=== PATIENT | female | born 1955 | race Caucasian/White ===

== ENCOUNTER 2020-10-13 | Outpatient (REF) | payer MEDICARE, SELFPAY ==
[2020-10-15 14:28] LABS: FIT1 NEGATIVE (NEGATIVE); FIT2 NEGATIVE (NEGATIVE)
[2020-10-15 14:29] LABS: FIT Int Ctl YES
== END 2020-10-13 00:01 | disposition home or self-care (01) ==
LOC: HO.LNP
PROVIDERS: Visit Provider Internal Medicine
DX: Z00.00 Encounter for general adult medical examination without abnormal findings (principal)
CPT/HCPCS: 82274

== ENCOUNTER 2021-01-05 08:03 | Outpatient (REF) | payer MEDICARE, SELFPAY ==
[2021-01-05 11:49] LABS: Alanine Aminotransferase 28 U/L (0-31); Albumin Level 4.6 g/dL (3.5-5.0); Alkaline Phosphatase 86 U/L (39-117); Anion Gap 14 (12-20); Aspartate Amino Transferase 28 U/L (5-31); Bilirubin Total 0.4 mg/dL (0.0-1.0); Blood Urea Nitrogen 10 mg/dL (9-16); Calcium 9.9 mg/dL (8.4-10.2); Carbon Dioxide 28 mmol/L (22-29); Chloride 104 mmol/L (96-108); Cholesterol 155 mg/dL; Estimated Glomerular Filt Rate > 60; Glucose Fasting 103 mg/dL (60-99); HDL Cholesterol 39 mg/dL; LDL Cholesterol Calculated 55 mg/dl; Potassium 4.8 mmol/L (3.3-5.1); Sodium 141 mmol/L (135-145); Total Protein 7.6 g/dL (6.5-8.0); Triglycerides 305 mg/dL
[2021-01-05 11:59] LABS: Vitamin D 25-OH Total 30.4 ng/mL (>30)
== END 2021-01-05 08:04 | disposition home or self-care (01) ==
LOC: HO.HMGCLDS 08:03
PROVIDERS: PCP Internal Medicine; Visit Provider Internal Medicine
DX: I10 Essential (primary) hypertension (principal); R73.01 Impaired fasting glucose; E78.1 Pure hyperglyceridemia; M85.89 Other specified disorders of bone density and structure, multiple sites
CPT/HCPCS: 36415; 80053; 80061; 82306

== ENCOUNTER 2021-07-08 08:18 | Outpatient (REF) | payer MEDICARE, SELFPAY ==
[2021-07-08 11:39] LABS: Alanine Aminotransferase 35 U/L (0-31); Anion Gap 14 (12-20); Aspartate Amino Transferase 30 U/L (5-31); Blood Urea Nitrogen 9 mg/dL (9-16); Calcium 9.9 mg/dL (8.4-10.2); Carbon Dioxide 26 mmol/L (22-29); Chloride 105 mmol/L (96-108); Cholesterol 152 mg/dL; Estimated Glomerular Filt Rate > 60; Glucose Fasting 106 mg/dL (60-99); HDL Cholesterol 37 mg/dL; LDL Cholesterol Calculated 63 mg/dl; Potassium 4.7 mmol/L (3.3-5.1); Sodium 140 mmol/L (135-145); Triglycerides 264 mg/dL
[2021-07-08 12:01] LABS: Vitamin D 25-OH Total 27.1 ng/mL (>30)
== END 2021-07-08 08:19 | disposition home or self-care (01) ==
LOC: HO.HMGCLDS 08:18
PROVIDERS: PCP Internal Medicine; Visit Provider Internal Medicine
DX: E78.2 Mixed hyperlipidemia (principal); I10 Essential (primary) hypertension; Z78.0 Asymptomatic menopausal state
CPT/HCPCS: 36415; 80048; 80061; 82306; 84450; 84460

== ENCOUNTER 2022-02-04 08:05 | Outpatient (REF) | payer MEDICARE, SELFPAY ==
[2022-02-04 12:22] LABS: Alanine Aminotransferase 50 U/L (0-31); Anion Gap 13 (12-20); Aspartate Amino Transferase 35 U/L (5-31); Blood Urea Nitrogen 11 mg/dL (9-16); Calcium 9.8 mg/dL (8.4-10.2); Carbon Dioxide 27 mmol/L (22-29); Chloride 103 mmol/L (96-108); Cholesterol 173 mg/dL; Estimated Glomerular Filt Rate > 60; Glucose Fasting 111 mg/dL (60-99); HDL Cholesterol 36 mg/dL; LDL Cholesterol Calculated 60 mg/dl; Potassium 4.8 mmol/L (3.3-5.1); Sodium 138 mmol/L (135-145); Triglycerides 386 mg/dL
[2022-02-04 12:46] LABS: Vitamin D 25-OH Total 35.5 ng/mL (>30)
== END 2022-02-04 08:06 | disposition home or self-care (01) ==
LOC: HO.HMGCLDS 08:05
PROVIDERS: PCP Internal Medicine; Visit Provider Internal Medicine
DX: E78.2 Mixed hyperlipidemia (principal); I10 Essential (primary) hypertension; M85.89 Other specified disorders of bone density and structure, multiple sites; R73.01 Impaired fasting glucose; Z78.0 Asymptomatic menopausal state
CPT/HCPCS: 36415; 80048; 80061; 82306; 84450; 84460

== ENCOUNTER 2022-05-31 08:14 | Outpatient (REF) | payer MEDICARE, SELFPAY ==
[2022-05-31 11:43] LABS: Estimated Average Glucose 114 mg/dL; Hemoglobin A1c % 5.6 %
[2022-05-31 12:02] LABS: TSH reflex Free T4 2.84 uIU/mL (0.32-4.0)
[2022-05-31 12:08] LABS: Alanine Aminotransferase 40 U/L (0-31); Aspartate Amino Transferase 34 U/L (5-31); Cholesterol 175 mg/dL; HDL Cholesterol 39 mg/dL; LDL Cholesterol Calculated 97 mg/dl; Triglycerides 198 mg/dL
== END 2022-05-31 08:15 | disposition home or self-care (01) ==
LOC: HO.HMGCLDS 08:14
PROVIDERS: PCP Internal Medicine; Visit Provider Internal Medicine
DX: E78.2 Mixed hyperlipidemia (principal); I10 Essential (primary) hypertension; M85.89 Other specified disorders of bone density and structure, multiple sites; R73.01 Impaired fasting glucose; Z78.0 Asymptomatic menopausal state
CPT/HCPCS: 36415; 80061; 82550; 83036; 84443; 84450; 84460

== ENCOUNTER 2022-10-06 08:20 | Outpatient (REF) | payer MEDICARE, SELFPAY ==
[2022-10-06 12:10] LABS: Alanine Aminotransferase 37 U/L (0-31); Anion Gap 12 (12-20); Aspartate Amino Transferase 31 U/L (5-31); Blood Urea Nitrogen 10 mg/dL (9-16); Calcium 9.7 mg/dL (8.4-10.2); Carbon Dioxide 27 mmol/L (22-29); Chloride 105 mmol/L (96-108); Cholesterol 167 mg/dL; Estimated Glomerular Filt Rate > 60; Glucose Fasting 101 mg/dL (60-99); HDL Cholesterol 39 mg/dL; LDL Cholesterol Calculated 87 mg/dl; Potassium 4.3 mmol/L (3.3-5.1); Sodium 140 mmol/L (135-145); Triglycerides 205 mg/dL
[2022-10-06 12:46] LABS: Estimated Average Glucose 117 mg/dL; Hemoglobin A1c % 5.7 %
== END 2022-10-06 08:21 | disposition home or self-care (01) ==
LOC: HO.HMGCLDS 08:20
PROVIDERS: PCP Internal Medicine; Visit Provider Internal Medicine
DX: E78.2 Mixed hyperlipidemia (principal); I10 Essential (primary) hypertension; R73.01 Impaired fasting glucose; E66.3 Overweight
CPT/HCPCS: 36415; 80048; 80061; 83036; 84450; 84460

== ENCOUNTER 2022-12-26 12:56 | Outpatient (AMB) | payer MEDICARE, SELFPAY ==
--- NOTE | 2022-12-26 13:32 | A.OFFPC_ITS ---
Vital Signs 12/26/22 13:34 Height 5 ft 1 in Weight 153 lb BMI 28.9 BP 138/70 Blood Pressure Location Lt brachial Position Sitting Pulse 80 Pulse Source Pulse Oximeter Pulse Oximetry (%) 97 Oxygen Delivery Method Room Air Intake Visit Reasons: 6 month follow up Intake Note: Pt is here for her 6 month f/u appointment. Allergies No Known Allergies Allergy (Verified 07/10/23 02:23) Medication List - Last Reconciled 12/26/22 by Shanita Frankel MD aspirin (Adult Low Dose Aspirin) 81 mg PO DAILY atorvastatin 20 mg PO 2XW calcium carbonate 500 mg PO DAILY cholecalciferol (vitamin D3) 50 mcg PO DAILY fenofibric acid (choline) 135 mg PO BEDTIME NS lisinopril 10 mg PO DAILY multivitamin 1 tab PO DAILY Tobacco use date assessed: 12/26/22 Fall risk assessment: No Falls in past year Last assessed Fall Risk: 12/26/22 HPI 6 month follow up HPI Details 68-year-old lady with hypertension, dysl ipidemia, generalized anxiety disorder, and prediabetes, here today for follow-up. Has been following healthy diet, stays active, compliant with taking her medications. Has been feeling well with no complaints at present time. Fasting labs done approximately 2 months ago showed results within normal limits except for a fasting glucose at 101 mg/dL and elevated triglycerides. HPI Comments History of Present Illness Details 67-year-old lady with impaired fasting g lucose, osteopenia and multiple sites, mixed dyslipidemia, and hypertension, here today for follow-up. [facility] Medical History (Updated 07/07/23 @ 13:50 by Shanita Frankel MD) Generalized anxiety disorder Unable to lose weight Overweight (BMI 25.0-29.9) Impaired fasting glucose Osteopenia of multiple sites Menopause Essential hypertension Mixed dyslipidemia Surgical History History of section Family History Father CVD (cardiovascular disease) Diabetes mellitus Hypertriglyceridemia Mother CVD (cardiovascular disease) Diabetes mellitus Breast cancer, Onset Age: 43 Colon cancer Sister Dermatomyositis Breast cancer Hypertension Ovarian cancer Social History Housing: Condominium Alcohol intake: current Patient Tobacco Use Status: Former Tobacco user e-Cigarette/Vaping Use: Never Used Current occupational status: retired Cognitive needs: No Hearing needs: No Vision needs: No Questionnaire AUDIT C Alcohol Use Questionnaire (AUDIT-C) 1. How often do you have a drink containing alcohol?: Monthly or less 2. How many drinks containing alcohol do you have on a typical day when you are drinking?: 1 or 2 3. How often do you have six or more drinks on one occasion?: Never Total Score: 1 Review of Systems Const Denies fatigue, Denies fever(s), Denies headache(s) and Denies weakness ENT Denies dizziness, Denies headache(s), Denies nasal congestion and Denies nasal discharge Card Denies chest pain, Denies lightheadedness, Denies palpitations and Denies dyspnea Resp Denies chest congestion, Denies cough and Denies dyspnea GI Denies abdominal pain, Denies change in bowel habits and Denies heartburn Musc Reports no additional complaints Skin/Breast Denies lesions and Denies rash Neuro Denies dizziness, Denies headache(s) and Denies weakness Psych Denies anxiety and Denies depression Endo Denies fatigue, Denies polydipsia, Denies polyuria and Denies palpitations Physical exam (Primary Care) Vital Signs: Last Vital Signs Pulse 80 12/26/22 13:34 BP 138/70 12/26/22 13:34 Pulse Ox 97 12/26/22 13:34 Oxygen Delivery Method Room Air 12/26/22 13:34 BMI result Body Mass Index 28.9 Tobacco/Smoking Status: Tobacco use Status Tobacco use date assessed 12/26/22 12/26/22 13:36 Patient Tobacco Use Status Former Tobacco user 12/26/22 13:33 e-Cigarette/Vaping Use Never Used 12/26/22 13:33 Const Other: Alert oriented x3, no acute distress noted, ambulatory with normal gait Orientation/consciousness: patient oriented x3 HENVA Mouth: Normal oral and palatal mucosa present and moist mucous membranes Eyes General: appearance normal, both eyes and all related structures Neck Neck: Yes full ROM, Yes no lymphadenopathy and Yes supple Thyroid: Thyroid normal Resp Auscultation: clear to auscultation bilaterally Cardio Other: S1-S2 present regular rhythm GI Other: Normal bowel sounds, soft, nontender, no mass palpated Back/Spine/Pelvis Back: No back tenderness Neuro General: patient oriented x3, gait normal, Normal light touch and pain sensation, no focal motor deficits and CN's II-XI intact bilaterally Extrem General: Yes full ROM, Yes no joint enlargement, Yes no pedal edema and Yes normal gait Psych Appearance: grossly normal and well kempt Mental Status: mental status grossly normal Speech and movement: Normal speech and movement present Affect: normal affect Assessment and Plan Assessment & Plan (1) Essential hypertension: Code(s): I10 - Essential (primary) hypertension Plan: Blood pressure goal less than 130/80. Will continue on lisinopril 10 mg daily. (2) Mixed dyslipidemia: Code(s): E78.2 - Mixed hyperlipidemia Plan: Latest fasting labs showed lipids within normal limits except for elevated triglycerides. Continued on fenofibric acid 135 mg at bedtime and atorvastatin 20 mg 1 tablet taken twice a week. (3) Impaired fasting glucose: Code(s): R73.01 - Impaired fasting glucose Plan: Fasting glucose on last lab was 101 mg/dL. (4) Overweight (BMI 25.0-29.9): Code(s): E66.3 - Overweight Plan: Continue with regular weight-bearing exercise, as stay active, follow a low cholesterol low-salt diet Orders: Orders Basic Metabolic Panel Fasting 2 Months E66.3 - Overweight, R73.01 - Impaired fasting glucose, M85.89 - Other specified disorders of bone density and structure, multiple sites, I10 - Essential (primary) hypertension, E78.2 - Mixed hyperlipidemia Lipid Panel 2 Months E66.3 - Overweight, R73.01 - Impaired fasting glucose, M85.89 - Other specified disorders of bone density and structure, multiple sites, I10 - Essential (primary) hypertension, E78.2 - Mixed hyperlipidemia Hemoglobin A1c 2 Months E66.3 - Overweight, R73.01 - Impaired fasting glucose, M85.89 - Other specified disorders of bone density and structure, multiple sites, I10 - Essential (primary) hypertension, E78.2 - Mixed hyperlipidemia Alanine Aminotransferase 2 Months E66.3 - Overweight, R73.01 - Impaired fasting glucose, M85.89 - Other specified disorders of bone density and structure, multiple sites, I10 - Essential (primary) hypertension, E78.2 - Mixed hyperlipidemia Aspartate Amino Transferase 2 Months E66.3 - Overweight, R73.01 - Impaired fasting glucose, M85.89 - Other specified disorders of bone density and s tructure, multiple sites, I10 - Essential (primary) hypertension, E78.2 - Mixed hyperlipidemia Vitamin D 25-OH Total 2 Months E66.3 - Overweight, R73.01 - Impaired fasting g lucose, M85.89 - Other specified disorders of bone density and structure, multiple sites, I10 - Essential (primary) hypertension, E78.2 - Mixed hyperlipidemia Coding Level of Care Code Est Pt Level 4 (42018) Diagnoses Essential hypertension I10 Mixed dyslipidemia E78.2 Impaired fasting glucose R73.01 Overweight (BMI 25.0-29.9) E66.3
[2022-12-26 13:34] VITALS: BP 138/70; PULSE 80; O2SAT 97; BMI 28.9
== END 2022-12-26 14:07 | disposition home or self-care (01) ==
LOC: HO.HMGC 12:57
PROVIDERS: PCP Internal Medicine; Visit Provider Internal Medicine
DX: I10 Essential (primary) hypertension (principal); E78.2 Mixed hyperlipidemia; R73.01 Impaired fasting glucose; E66.3 Overweight
CPT/HCPCS: 99214

== ENCOUNTER 2023-03-09 08:11 | Outpatient (REF) | payer MEDICARE, SELFPAY ==
[2023-03-09 12:08] LABS: Alanine Aminotransferase 34 U/L (0-31); Anion Gap 14 (12-20); Aspartate Amino Transferase 27 U/L (5-31); Blood Urea Nitrogen 12 mg/dL (9-16); Calcium 9.8 mg/dL (8.4-10.2); Carbon Dioxide 25 mmol/L (22-29); Chloride 105 mmol/L (96-108); Cholesterol 183 mg/dL; Estimated Glomerular Filt Rate > 60; Glucose Fasting 105 mg/dL (60-99); HDL Cholesterol 37 mg/dL; LDL Cholesterol Calculated 101 mg/dl; Potassium 4.6 mmol/L (3.3-5.1); Sodium 139 mmol/L (135-145); Triglycerides 225 mg/dL
[2023-03-09 12:23] LABS: Estimated Average Glucose 117 mg/dL; Hemoglobin A1c % 5.7 %
[2023-03-09 12:28] LABS: Vitamin D 25-OH Total 38.2 ng/mL (>30)
== END 2023-03-09 08:12 | disposition home or self-care (01) ==
LOC: HO.HMGCLDS 08:11
PROVIDERS: PCP Internal Medicine; Visit Provider Internal Medicine
DX: E66.3 Overweight (principal); I10 Essential (primary) hypertension; M85.89 Other specified disorders of bone density and structure, multiple sites; R73.01 Impaired fasting glucose; E78.2 Mixed hyperlipidemia
CPT/HCPCS: 36415; 80048; 80061; 82306; 83036; 84450; 84460

== ENCOUNTER 2023-07-07 12:55 | Outpatient (AMB) | payer MEDICARE, SELFPAY ==
--- NOTE | 2023-07-07 12:56 | A.OFFPC_ITS ---
Vital Signs 07/07/23 12:58 Height 5 ft 1 in Weight 148 lb BMI 28.0 BP 138/72 Blood Pressure Location Lt brachial Position Sitting Pulse 72 Pulse Source Pulse Oximeter Pulse Oximetry (%) 98 Intake Visit Reasons: 6 Month Follow Up On medication Intake Note: patient is here today for her 6 month f/u, needs refills on medications Allergies No Known Allergies Allergy (Verified 07/10/23 02:23) Medication List - Last Reconciled 07/10/23 by Shanita Frankel MD aspirin (Adult Low Dose Aspirin) 81 mg PO DAILY atorvastatin 20 mg PO 2XW buspirone 5 mg PO BID NS calcium carbonate 500 mg PO DAILY cholecalciferol (vitamin D3) 50 mcg PO DAILY erythromycin 0.5 inches ophthalmic (eye) TID fenofibric acid (choline) 135 mg PO BEDTIME NS lisinopril 10 mg PO DAILY multivitamin 1 tab PO DAILY Tobacco use date assessed: 07/07/23 Fall risk assessment: No Falls in past year Last assessed Fall Risk: 07/07/23 Dental Screening Dental Screen Date: 07/07/23 Did you have a dental visit in the last 12 months?: Yes Did you have a dental problem in the last 6 months where you did not have access to dental care?: Yes Was dental information given to patient?: Patient has dentist HPI 6 Month Follow Up On medication HPI Details [age]-year-old lady with dyslipidemia, h ypertension, and impaired fasting glucose, here today for follow-up. She has been compliant with taking her medications, and has been following a low-cholesterol diet and getting regular exercise. She also has been having intermittent episodes of anxiety attacks, without any triggers. Has been having problems sleeping at night and sometimes would frequent nighttime awakenings , with thoughts racing. [facility] Medical History (Updated 07/07/23 @ 13:50 by Shanita Frankel MD) Generalized anxiety disorder Unable to lose weight Overweight (BMI 25.0-29.9) Impaired fasting glucose Osteopenia of multiple sites Menopause Essential hypertension Mixed dyslipidemia Surgical History History of section Family History Father CVD (cardiovascular disease) Diabetes mellitus Hypertriglyceridemia Mother CVD (cardiovascular disease) Diabetes mellitus Breast cancer, Onset Age: 43 Colon cancer Sister Dermatomyositis Breast cancer Hypertension Ovarian cancer Social History Housing: Condominium Alcohol intake: current Patient Tobacco Use Status: Former Tobacco user e-Cigarette/Vaping Use: Never Used Current occupational status: retired Cognitive needs: No Hearing needs: No Vision needs: No Questionnaire PHQ-9 Over the last 2 weeks, how often have you been bothered by any of the following problems? 1. Little interest or pleasure in doing things: not at all 2. Feeling down, depressed, or hopeless: several days 3. Trouble falling or staying asleep, or sleeping too much: nearly every day 4. Feeling tired or having little energy: nearly every day 5. Poor appetite or overeating: not at all 6. Feeling bad about yourself - or that you are a failure or have let yourself or your family down: not at all 7. Trouble concentrating on things, such as reading the newspaper or watching television: not at all 8. Moving or speaking so slowly that other people could have noticed. Or the opposite - being so fidgety or restless that you have been moving around a lot more than usual: not at all 9. Thoughts that you would be better off or of hurting yourself in some way: not at all Total score: 7 Depression Screening Interpretation: Positive 44976 - PHQ-9 Billing: Yes Source: Developed by Drs. Hank Araya, Caryl Sterling, Jamal Patel and colleagues, with an educational radha from [employer]. AUDIT C Alcohol Use Questionnaire (AUDIT-C) 1. How often do you have a drink containing alcohol?: Monthly or less 2. How many drinks containing alcohol do you have on a typical day when you are drinking?: 1 or 2 3. How often do you have six or more drinks on one occasion?: Never Total Score: 1 AGGIE-7 AMB Questionnaire AGGIE-7 Feeling nervous, anxious, or on edge: 1 = Several days Not being able to stop or control worryin = More than half the days Worrying too much about different things: 2 = More than half the days Trouble relaxin = More than half the days Being so restless that it is hard to sit still: 1 = Several days Becoming easily annoyed or irritable: 2 = More than half the days Feeling afraid as if something awful might happen: 0 = Not at all Total AGGIE-7 score (0-4 normal; 5-9 mild; 10-14 moderate; 15-21 severe): 10 Source: Developed by Drs. Hank Araya, Caryl Sterling, Jamal Patel and colleagues, with an educational radha from [employer]. AGGIE-7 Assessment Billing AGGIE-7 Assessment Tool: AGGIE-7 Assessment 73033 Review of Systems Const Denies body aches, Denies fatigue, Denies fever(s), Denies headache(s) and Denies weakness ENT Denies dizziness, Denies headache(s), Denies nasal congestion, Denies nasal discharge and Denies sore throat Card Denies chest pain, Denies lightheadedness, Denies palpitations and Denies dyspnea Resp Denies chest congestion, Denies cough and Denies dyspnea GI Denies abdominal pain, Denies change in bowel habits and Denies heartburn Musc Reports no additional complaints Skin/Breast Denies lesions and Denies rash Neuro Denies dizziness, Denies headache(s) and Denies weakness Psych Reports as per HPI Endo Denies fatigue, Denies polydipsia, Denies polyuria and Denies palpitations Physical exam (Primary Care) Vital Signs: Last Vital Signs Pulse 72 07/07/23 12:58 BP 138/72 07/07/23 12:58 Pulse Ox 98 07/07/23 12:58 BMI result Body Mass Index 28.0 Tobacco/Smoking Status: Tobacco use Status Tobacco use date assessed 07/07/23 07/07/23 13:04 Patient Tobacco Use Status Former Tobacco user 07/07/23 12:57 e-Cigarette/Vaping Use Never Used 07/07/23 12:57 PHQ-9: PHQ-9 Score PHQ-9: Total score 7 07/07/23 13:52 Depression Screening Interpretation: Positive Const Other: Alert oriented x3, no acute distress noted, ambulatory with normal gait Orientation/consciousness: patient oriented x3 HENMT Mouth: Normal oral and palatal mucosa present and moist mucous membranes Eyes General: appearance normal, both eyes and all related structures Neck Neck: Yes full ROM, Yes no lymphadenopathy and Yes supple Thyroid: Thyroid normal Resp Auscultation: clear to auscultation bilaterally Cardio Other: S1-S2 present regular rhythm GI Other: Normal bowel sounds, soft, nontender, no mass palpated Neuro General: patient oriented x3, gait normal, Normal light touch and pain sensation, no focal motor deficits and CN's II-XI intact bilaterally Extrem General: Yes full ROM, Yes no joint enlargement, Yes no pedal edema and Yes normal gait Psych Appearance: grossly normal and well kempt Mental Status: mental status grossly normal Speech and movement: Normal speech and movement present Affect: normal affect Attitude: cooperative Thought process: Normal thought process present Thought content: Normal thought content present Results Reviewed Results Reviewed: RUN: 07/10/23227 PAGE 1 [facility] [address] [place] [id number] Supervisor Patching: Chaz Holman M.D. Specimen Inquiry Name: Mc Lo Age/Sex: 68/F : 1955 Unit#: [id number] Attend Dr: Shanita Frankel MD Re03/09/23 Status: DEP REF Location: [facility] Disch: SPEC : [id number] CHERYL: 03/09/23 STATUS: COMP REQ : [id number] RECD: 03/09/[address]: Shanita Frankel MD COMP: 03/09/238 ENTERED: 03/09/[address] [facility] [address]: ORDERED: Met Prof Fast, AST, ALT, Lipid Panel, Vitamin D 25-OH Test Result Flag Reference Site Sodium 139 135-145 mmol/L Potassium 4.6 3.3-5.1 mmol/L CL 105 96-108 mmol/L CO2 25 22-29 mmol/L Gap 14 12-20 BUN 12 9-16 mg/dL Creat 0.85 0.5-1.4 mg/dL EGFR > 60 NOTE: For -Burmese individuals, multiply the result by 1.210. Chronic Kidney Disease: Estimated GFR < 60 mL/min/1.73m2 Severe Kidney Disease: Estimated GFR < 15 mL/min/1.73m2 FBS 105 H 60-99 mg/dL A fasting glucose from 100-125 mg/dl is considered impaired (pre-diabetes). CA 9.8 8.4-10.2 mg/dL AST (GOT) 27 5-31 U/L ALT (GPT) 34 H 0-31 U/L Triglyceride 225 mg/dL Desirable Triglyceride: less than 150 mg/dL Borderline High Triglyceride 150-199 mg/dL High Triglyceride: 200-499 mg/dL Very High Triglyceride: greater than or equal to 5OO mg/dL Chol 183 mg/dL Desirable Cholesterol: less than 200 mg/dL Borderline High Cholesterol: 200-239 mg/dL High Cholesterol: greater than 239 mg/dL LDL Calculated 101 mg/dl Desirable LDL: less than 100 mg/dL Near Optimal/Above Optimal LDL: 110-129 mg/dL Borderline High LDL: 130-159 mg/dL High LDL: 160-189 mg/dL Very High LDL: greater than or equal to 190 mg/dL HDL 37 mg/dL Desirable HDL: greater than 40 mg/dL Note: This HDL assay may give artificially low results in patients with liver disease. Vit D 25-OH Tot 38.2 >30 ng/mL Health Based Reference Values* < 20 ng/mL Deficient 20-30 ng/mL Insufficient > 30 ng/mL Sufficient ENTERED: 03/09/23 [facility] : ORDERED: Hgb A1c Test Result Flag Reference Site A1c % 5.7 % Hemoglobin A1C Reference Range Adults: 4.8 - 6.0 % Non diabetic: < 6.0 % Goal: < 7.0 % Additional Action Suggested: > 8.0 % Note: Hemoglobin A1c results are invalid for patients with abnormal amounts of HbF. Blood transfusions may impact the HbA1c concentration in the patient sample. Est. Avg. Gluc 117 mg/dL Assessment and Plan Assessment & Plan (1) Essential hypertension: Code(s): I10 - Essential (primary) hypertension Plan: Blood pressure at goal of less than 130/80. Continue with current medication. Reinforced importance of following a low sodium diet, getting regular exercise, and lowering stress levels. (2) Mixed dyslipidemia: Code(s): E78.2 - Mixed hyperlipidemia Plan: Reviewed recent fasting lipid profile with patient with levels within normal limits . Continue with atorvastatin and fenofibrate , in addition to adherence to low-cholesterol diet and regular exercise, at least 30 minutes 3 to 4 times a week. Advised patient to make healthy food choices, eat more fruits, vegetables, whole grains, wild caught fish and low-fat dairy. Limit amount of meat and fried or fatty food products, as well as processed foods and fast foods. Follow-up scheduled with repeat fasting lipid panel in 4 months. (3) Generalized anxiety disorder: Code(s): F41.1 - Generalized anxiety disorder Plan: Discussed symptoms of anxiety. Will start on buspirone 5 mg per tablet to take 1 tablet twice a day, advised to start taking it just once at night with supper time and see if that will be enough to control her anxiety and help her sleep at night. May increase it to twice a day dosing as needed Discussed other ways to relieve stress including : exercise or a massage, Get enough rest, Avoid alcohol, caffeine, nicotine, and illegal drugs which can increase your anxiety level and cause sleep problems. Advised to call and let me know after 4 weeks how she is doing otherwise will see her back in October 2023 when she comes in for her physical exam. (4) Impaired fasting glucose: Code(s): R73.01 - Impaired fasting glucose Plan: Continue with adhering to healthy eating habits and getting regular exercise. Orders: Orders Lipid Panel 10/30/23 E66.3 - Overweight, E78.2 - Mixed hyperlipidemia, F41.1 - Generalized anxiety disorder, I10 - Essential (primary) hypertension, M85.89 - Other specified disorders of bone density and structure, multiple sites, R73.01 - Impaired fasting glucose, Z78.0 - Asymptomatic menopausal state Hemoglobin A1c 10/30/23 E66.3 - Overweight, E78.2 - Mixed hyperlipidemia, F41.1 - Generalized anxiety disorder, I10 - Essential (primary) hypertension, M85.89 - Other specified disorders of bone density and structure, multiple sites, R73.01 - Impaired fasting glucose, Z78.0 - Asymptomatic menopausal state Aspartate Amino Transferase 10/30/23 E66.3 - Overweight, E78.2 - Mixed hyperlipidemia, F41.1 - Generalized anxiety disorder, I10 - Essential (primary) hypertension, M85.89 - Other specified disorders of bone density and structure, multiple sites, R73.01 - Impaired fasting glucose, Z78.0 - Asymptomatic menopau devante state Basic Metabolic Panel Fasting 10/30/23 E66.3 - Overweight, E78.2 - Mixed hyperlipidemia, F41.1 - Generalized anxiety disorder, I10 - Essential (primary) hypertension, M85.89 - Other specified disorders of bone density and structure, multiple sites, R73.01 - Impaired fasting glucose, Z78.0 - Asymptomatic menopausal state Alanine Aminotransferase 10/30/23 E66.3 - Overweight, E78.2 - Mixed hyperlipidemia, F41.1 - Generalized anxiety disorder, I10 - Essential (primary) hypertension, M85.89 - Other specified disorders of bone density and structure, multiple sites, R73.01 - Impaired fasting glucose, Z78.0 - Asymptomatic menopausal state Vitamin D 25-OH Total 10/30/23 E66.3 - Overweight, E78.2 - Mixed hyperlipidemia, F41.1 - Generalized anxiety disorder, I10 - Essential (primary) hypertension, M85.89 - Other specified disorders of bone density and structure, multiple sites, R73.01 - Impaired fasting glucose, Z78.0 - Asymptomatic menopausal state Medications: New buspirone 5 mg PO BID 60 tabs 0RF NS Coding Level of Care Code Est Pt Level 4 (39358) Diagnoses Essential hypertension I10 Mixed dyslipidemia E78.2 Generalized anxiety disorder F41.1 Impaired fasting glucose R73.01 Additional Codes AGGIE-7 Assessment Billing - AGGIE-7 Assessment Tool: AGGIE-7 Assessment [id number] ([id number])
[2023-07-07 12:58] VITALS: BP 138/72; PULSE 72; O2SAT 98; BMI 28.0
== END 2023-07-07 15:49 | disposition home or self-care (01) ==
PROVIDERS: PCP Internal Medicine; Visit Provider Internal Medicine
DX: I10 Essential (primary) hypertension (principal); E78.2 Mixed hyperlipidemia; F41.1 Generalized anxiety disorder; R73.01 Impaired fasting glucose
CPT/HCPCS: 96127; 99214

== ENCOUNTER 2023-11-09 12:51 | Outpatient (AMB) | payer MEDICARE, SELFPAY ==
[2023-11-09 13:00] VITALS: BP 158/82; PULSE 79; O2SAT 99; BMI 27.6
--- NOTE | 2023-11-09 13:00 | A.OFFPC_ITS ---
Vital Signs 11/09/23 13:00 Height 5 ft 1 in Weight 146 lb 2 oz BMI 27.6 BP 158/82 H Blood Pressure Location Rt brachial Position Sitting Pulse 79 Pulse Source Pulse Oximeter Pulse Oximetry (%) 99 Oxygen Delivery Method Room Air Intake Visit Reasons: PE Intake Note: Pt is here for her Annual PE Allergies amoxicillin [From Augmentin] Adverse Reaction (Mild, Verified 11/09/23 13:12) Diarrhea clavulanic acid [From Augmentin] Adverse Reaction (Mild, Verified 11/09/23 13:12) Diarrhea Medication List - Last Reconciled 11/09/23 by Shanita Frankel MD aspirin (Adult Low Dose Aspirin) 81 mg PO DAILY atorvastatin 20 mg PO 2XW buspirone 1 tab in am, 2 tabs in pm orally; NS calcium carbonate 500 mg PO DAILY cholecalciferol (vitamin D3) 50 mcg PO DAILY fenofibric acid (choline) 135 mg PO BEDTIME NS lisinopril 10 mg PO DAILY multivitamin 1 tab PO DAILY ot-oab-KF-vit E-zosbkr-lfglzti 200 mcg-15 mcg- 5 mg-1 mg (PreserVision AREDS 2 Plus Multivit) caps PO Tobacco use date assessed: 11/09/23 Fall risk assessment: No Falls in past year Last assessed Fall Risk: 11/09/23 Dental Screening Dental Screen Date: 11/09/23 Did you have a dental visit in the last 12 months?: Yes Did you have a dental problem in the last 6 months where you did not have access to dental care?: No Was dental information given to patient?: Patient has dentist HPI PE HPI Details 68-year-old lady here today for physical exam, has hypertension currently on lisinopril 10 mg daily. States that she has been checking her blood pressure at home and it has been running below 130/90, was normal also at her OBGYN office recently. Denies any chest pain headache or lightheadedness, no shortness of breath reported. Has been compliant with taking her medications. Has hyperlipidemia currently on fenofibric acid 135 mg and atorvastatin 20 mg taken twice a week. Compliant with medication and has been trying to do regular exercise at least 3 to 4 times a week. She has been taking buspirone which has been helping with her anxiety , and has increased her evening dose to 10 mg at bedtime which has been helping her sleep but still waking up earlier than usual and unable to go back. She sees her OBGYN in [place], currently up-to-date with her cervical cancer screening and mammogram, as well as bone density scan, latter showing osteopenia and multiple sites, no history of fracture. [facility] Medical History Generalized anxiety disorder Unable to lose weight Overweight (BMI 25.0-29.9) Impaired fasting glucose Osteopenia of multiple sites Menopause Essential hypertension Mixed dyslipidemia Surgical History History of section Family History Father CVD (cardiovascular disease) Diabetes mellitus Hypertriglyceridemia Mother CVD (cardiovascular disease) Diabetes mellitus Breast cancer, Onset Age: 43 Colon cancer Sister Dermatomyositis Breast cancer Hypertension Ovarian cancer Social History Housing: Condominium Alcohol intake: current Patient Tobacco Use Status: Former Tobacco user e-Cigarette/Vaping Use: Never Used Current occupational status: retired Cognitive needs: No Hearing needs: No Vision needs: No Questionnaire PHQ-9 Over the last 2 weeks, how often have you been bothered by any of the following problems? 1. Little interest or pleasure in doing things: not at all 2. Feeling down, depressed, or hopeless: not at all 3. Trouble falling or staying asleep, or sleeping too much: more than half the days 4. Feeling tired or having little energy: not at all 5. Poor appetite or overeating: not at all 6. Feeling bad about yourself - or that you are a failure or have let yourself or your family down: not at all 7. Trouble concentrating on things, such as reading the newspaper or watching television: not at all 8. Moving or speaking so slowly that other people could have noticed. Or the opposite - being so fidgety or restless that you have been moving around a lot more than usual: not at all 9. Thoughts that you would be better off or of hurting yourself in some way: not at all Total score: 2 Depression Screening Interpretation: Negative Depression Screening Done: Yes 76409 - PHQ-9 Billing: Yes Source: Developed by Drs. Hank Araya, Caryl Sterling, Jamal Patel and colleagues, with an educational radha from [employer]. Thrive Questionnaire Date Thrive assessed: 11/09/23 I am a: Patient What is your living situation today?: I have a steady place to live Within the past 12 months, did the food you bought not last and you didn't have the money to get more?: Never true Within the past 12 months, did you worry whether your food would run out before you got money to buy more?: Never true Do you have trouble paying for medicines?: No Do you have trouble getting transportation to medical appointments?: No Do you have trouble paying your heating and electricity bill?: No Do you have trouble taking care of your child, family member or friend?: No Do you have trouble with day-to-day activities such as bathing, preparing meals, shopping, managing finances, etc.?: No Are you currently unemployed and looking for a job?: No Are you interested in more education?: No AUDIT C Alcohol Use Questionnaire (AUDIT-C) 1. How often do you have a drink containing alcohol?: 2-4 times a month 2. How many drinks containing alcohol do you have on a typical day when you are drinking?: 1 or 2 3. How often do you have six or more drinks on one occasion?: Never Total Score: 2 AGGIE-7 AMB Questionnaire AGGIE-7 Date AGGIE - 7 assessed: 11/09/23 Feeling nervous, anxious, or on edge: 1 = Several days Not being able to stop or control worryin = Several days Worrying too much about different things: 1 = Several days Trouble relaxin = Several days Being so restless that it is hard to sit still: 0 = Not at all Becoming easily annoyed or irritable: 1 = Several days Feeling afraid as if something awful might happen: 0 = Not at all Total AGGIE-7 score (0-4 normal; 5-9 mild; 10-14 moderate; 15-21 severe): 5 Source: Developed by Caryl Jackson Kurt Kroenke and colleagues, with an educational radha from [employer]. AGGIE-7 Assessment Billing AGGIE-7 Assessment Tool: AGGIE-7 Assessment 43999 Review of Systems Const Reports as per HPI, Denies body aches, Denies fatigue, Denies fever(s), Denies headache(s) and Denies weakness Eyes Reports no additional complaints and Denies change in vision ENT Denies dizziness, Denies headache(s), Denies nasal congestion, Denies nasal discharge and Denies sore throat Card Denies chest pain, Denies lightheadedness, Denies palpitations and Denies dyspnea Resp Denies chest congestion, Denies cough and Denies dyspnea GI Denies abdominal pain, Denies change in bowel habits and Denies heartburn Reports no additional complaints Musc Reports no additional complaints Skin/Breast Denies lesions and Denies rash Neuro Denies dizziness, Denies headache(s) and Denies weakness Psych Reports as per HPI Endo Denies fatigue, Denies polydipsia, Denies polyuria and Denies palpitations Manny/Lymph Reports no additional complaints Aller/Immun Reports no additional complaints Physical exam (Primary Care) Vital Signs: Last Vital Signs Pulse 79 11/09/23 13:00 BP 158/82 H 11/09/23 13:00 Pulse Ox 99 11/09/23 13:00 Oxygen Delivery Method Room Air 11/09/23 13:00 Care Plan Goal for BP management: Advised to check her blood pressure at home with her own monitor and persistently elevated more than 130/80, to call and will adjust medication dose,. Continue with adherence to low-salt diet and get ting regular exercise BMI result Body Mass Index 27.6 Tobacco/Smoking Status: Tobacco use Status Tobacco use date assessed 11/09/23 11/09/23 13:06 Patient Tobacco Use Status Former Tobacco user 11/09/23 13:00 e-Cigarette/Vaping Use Never Used 11/09/23 13:00 PHQ-9: PHQ-9 Score PHQ-9: Total score 2 11/10/23 07:09 Depression Screening Interpretation: Negative Thrive Assessment: Date of Thrive Assessment Date Thrive assessed 11/09/23 11/09/23 13:11 Advance Care Planning discussion: Exists, not on file Date of discussion: 11/09/23 Who was present: Patient Forms completed: Health Care Proxy and MOLST Time spent: 1-15 minutes, not on file Actual minutes spent: 15 Const Other: Alert oriented x3, no acute distress noted, ambulatory with normal gait Orientation/consciousness: patient oriented x3 HENMT Mouth: Normal oral and palatal mucosa present and moist mucous membranes Eyes General: appearance normal, both eyes and all related structures Neck Neck: Yes full ROM, Yes no lymphadenopathy and Yes supple Thyroid: Thyroid normal Chest Breast/axilla palpation: normal palpation of the breasts Resp Auscultation: clear to auscultation bilaterally Cardio Other: S1-S2 present regular rhythm GI Other: Normal bowel sounds, soft, nontender, no mass palpated Other: Deferred, sees her OBGYN in [place], currently up-to-date with her Pap and pelvic exam General: Yes no CVA tenderness Back/Spine/Pelvis Back: no CVA tenderness and No back tenderness Neuro General: patient oriented x3, gait normal, Normal light touch and pain sensation, no focal motor deficits and CN's II-XI intact bilaterally Extrem General: Yes full ROM, Yes no joint enlargement, Yes no pedal edema and Yes normal gait Psych Appearance: grossly normal and well kempt Mental Status: mental status grossly normal Speech and movement: Normal speech and movement present Affect: normal affect Attitude: cooperative Thought process: Normal thought process present Thought content: Normal thought content present Assessment and Plan Assessment & Plan (1) Annual visit for general adult medical examination with abnormal findings: Code(s): Z00.01 - Encounter for general adult medical examination with abnormal findings Plan: Reminded to get fasting labs done, already ordered. Continue with regular dental visit every 6 months and regular eye exams, at least every 2 years. Continue taking calciumand vitamin-D 3 at 2000 IU per cap once a day, in addition to weight-bearing exercises to help maintain good muscle tone and weight control. Instructed to do self-breast exam, and is up-to-date with her yearly mammogram, bone density ordered by her OBGYN.. Up-to-date with her vaccinations. Up-to-date with her colon cancer screening had Cologuard testing which came back negative (2) Generalized anxiety disorder: Code(s): F41.1 - Generalized anxiety disorder Plan: Continue with buspirone, 5 mg in the morning and may increase her evening dose to 15 mg at night to see if this will help sleep through the night. Call if no improvement (3) Osteopenia of multiple sites: Code(s): M85.89 - Other specified disorders of bone density and structure, multiple sites Plan: Encouraged to continue with regular weight-bearing exercise continue taking adequate calcium from dietary sources and continue taking vitamin-D 3 supplement at least 2000 units daily (4) Essential hypertension: Code(s): I10 - Essential (primary) hypertension Plan: Blood pressure today is elevated, advised to check pressure at home, and if persistently above 130/90, to notify us. (5) Mixed dyslipidemia: Code(s): E78.2 - Mixed hyperlipidemia Plan: Continue atorvastatin and fenofibric acid, reminded to get fasting labs done already ordered Coding Level of Care Code Est Pt Prev Care >65y(36483) Diagnoses Annual visit for general adult medical examination with abnormal findings Z00.01 Generalized anxiety disorder F41.1 Osteopenia of multiple sites M85.89 Essential hypertension I10 Mixed dyslipidemia E78.2 Additional Codes AGGIE-7 Assessment Billing - AGGIE-7 Assessment Tool: AGGIE-7 Assessment 18988 ([id number]) Vital Signs *Quality* - Advance Care Planning discussion: Exists, not on file ([id number]) Vital Signs *Quality* - Time spent: 1-15 minutes, not on file ([id number])
== END 2023-11-09 13:38 | disposition home or self-care (01) ==
PROVIDERS: PCP Internal Medicine; Visit Provider Internal Medicine
DX: Z00.00 Encounter for general adult medical examination without abnormal findings (principal); F41.1 Generalized anxiety disorder; M85.89 Other specified disorders of bone density and structure, multiple sites; I10 Essential (primary) hypertension; E78.2 Mixed hyperlipidemia
CPT/HCPCS: 1124F; 99397

== ENCOUNTER 2023-11-15 08:35 | Outpatient (REF) | payer MEDICARE, SELFPAY ==
[2023-11-15 11:42] LABS: Estimated Average Glucose 105 mg/dL; Hemoglobin A1c % 5.3 % (<6.0)
[2023-11-15 12:11] LABS: Alanine Aminotransferase 23 U/L (0-31); Anion Gap 11 (12-20); Aspartate Amino Transferase 24 U/L (5-31); Blood Urea Nitrogen 13 mg/dL (9-16); Calcium 9.9 mg/dL (8.4-10.2); Carbon Dioxide 27 mmol/L (22-29); Chloride 105 mmol/L (96-108); Cholesterol 142 mg/dL (<200); Estimated Glomerular Filt Rate > 60; Glucose Fasting 96 mg/dL (60-99); HDL Cholesterol 38 mg/dL (>40); LDL Cholesterol Calculated 67 mg/dL (<100); Potassium 3.7 mmol/L (3.3-5.1); Sodium 139 mmol/L (135-145); Triglycerides 188 mg/dL (<150); Vitamin D 25-OH Total 51.6 ng/mL (>30)
== END 2023-11-15 08:36 | disposition home or self-care (01) ==
LOC: HO.HMGCLDS 08:35
PROVIDERS: PCP Internal Medicine; Visit Provider Internal Medicine
DX: F41.1 Generalized anxiety disorder (principal); E66.3 Overweight; R73.01 Impaired fasting glucose; M85.89 Other specified disorders of bone density and structure, multiple sites; I10 Essential (primary) hypertension; E78.2 Mixed hyperlipidemia; Z78.0 Asymptomatic menopausal state
CPT/HCPCS: 36415; 80048; 80061; 82306; 83036; 84450; 84460

== ENCOUNTER 2024-03-11 08:07 | Outpatient (AMB) | payer MEDICARE, SELFPAY ==
--- NOTE | 2024-03-11 08:10 | A.OFFPC_ITS ---
Vital Signs 03/11/24 08:11 Height 5 ft 1 in Weight 142 lb BMI 26.8 BP 144/64 H Blood Pressure Location Lt brachial Position Sitting Pulse 81 Pulse Source Pulse Oximeter Pulse Oximetry (%) 97 Oxygen Delivery Method Room Air Intake Visit Reasons: f/u HTN and lipids Intake Note: Pt is here today to f/u HTN and lipids Allergies amoxicillin [From Augmentin] Adverse Reaction (Mild, Verified 03/11/24 08:35) Diarrhea clavulanic acid [From Augmentin] Adverse Reaction (Mild, Verified 03/11/24 08:35) Diarrhea Medication List - Last Reconciled 03/11/24 by Shanita Frankel MD aspirin (Adult Low Dose Aspirin) 81 mg PO DAILY atorvastatin 20 mg PO 2XW buspirone 1 tab in am, 3 tabs in pm orally; 3 months NS calcium carbonate 500 mg PO DAILY cholecalciferol (vitamin D3) 50 mcg PO DAILY fenofibric acid (choline) 135 mg PO BEDTIME NS lisinopril 10 mg PO DAILY multivitamin 1 tab PO DAILY sw-wzd-SO-vit N-byudsn-hdackqx 200 mcg-15 mcg- 5 mg-1 mg (PreserVision AREDS 2 Plus Multivit) caps PO Tobacco use date assessed: 03/11/24 Fall risk assessment: No Falls in past year Last assessed Fall Risk: 03/11/24 Dental Screening Dental Screen Date: 03/11/24 Did you have a dental visit in the last 12 months?: Yes Did you have a dental problem in the last 6 months where you did not have access to dental care?: No Was dental information given to patient?: Patient has dentist HPI f/u HTN and lipids HPI Details 69-year-old lady here today for follow-u p on her hypertension and hyper lipidemia. She has been checking her blood pressure in the morning before taking her meds and it usually around systolic of 130 to 140/80. However , when she checks it after exercising in the gym it usually is averaging 120/70. She denies any accompanying chest pain, no headache no lightheadedness, no shortness of breath, no palpitations she has been compliant with taking her medication, and has been adhering to a healthy diet.. Her last fasting lipids in October 2023 showed results within normal limits, currently taking atorvastatin 20 mg 1 tablet twice a week and fenofibric acid 135 mg at night. She takes buspirone 5 mg in the morning and 3 tablets at night, which has been helping control her anxiety during the day but states that she has been waking up early at around 04:00 in the morning , and is unable to go back to sleep afterwards . Previously the 15 mg that she takes at night helps her sleep through the night. [facility] Medical History (Updated 03/11/24 @ 08:51 by Shanita Frankel MD) Labile essential hypertension Generalized anxiety disorder Unable to lose weight Overweight (BMI 25.0-29.9) Impaired fasting glucose Osteopenia of multiple sites Menopause Essential hypertension Mixed dyslipidemia Surgical History History of section Family History Father CVD (cardiovascular disease) Diabetes mellitus Hypertriglyceridemia Mother CVD (cardiovascular disease) Diabetes mellitus Breast cancer, Onset Age: 43 Colon cancer Sister Dermatomyositis Breast cancer Hypertension Ovarian cancer Social History Housing: Condominium Alcohol intake: current Patient Tobacco Use Status: Former Tobacco user e-Cigarette/Vaping Use: Never Used Current occupational status: retired Cognitive needs: No Hearing needs: No Vision needs: No Questionnaire Thrive Questionnaire Date Thrive assessed: 11/09/23 AGGIE-7 AMB Questionnaire AGGIE-7 Date AGGIE - 7 assessed: 11/09/23 Source: Developed by Drs. Hank Araya, Caryl Sterling, Jamal Patel and colleagues, with an educational radha from [employer]. Review of Systems Const Denies body aches, Denies fatigue, Denies fever(s), Denies headache(s), Denies lethargy and Denies weakness Eyes Reports no additional complaints and Denies change in vision ENT Denies dizziness, Denies headache(s), Denies nasal congestion, Denies nasal discharge and Denies sore throat Card Denies chest pain, Denies lightheadedness, Denies palpitations and Denies dyspnea Resp Denies chest congestion, Denies cough and Denies dyspnea GI Denies abdominal pain, Denies change in bowel habits and Denies heartburn Reports no additional complaints Musc Reports no additional complaints Skin/Breast Denies lesions and Denies rash Neuro Denies dizziness, Denies headache(s) and Denies weakness Psych Reports as per HPI Endo Denies fatigue, Denies polydipsia, Denies polyuria and Denies palpitations Manny/Lymph Reports no additional complaints Aller/Immun Reports no additional complaints Physical exam (Primary Care) Vital Signs: Last Vital Signs Pulse 81 03/11/24 08:11 BP 144/64 H 03/11/24 08:11 Pulse Ox 97 03/11/24 08:11 Oxygen Delivery Method Room Air 03/11/24 08:11 BMI result Body Mass Index 26.8 Tobacco/Smoking Status: Tobacco use Status Tobacco use date assessed 03/11/24 03/11/24 08:31 Patient Tobacco Use Status Former Tobacco user 03/11/24 08:11 e-Cigarette/Vaping Use Never Used 03/11/24 08:11 Thrive Assessment: Date of Thrive Assessment Date Thrive assessed 11/09/23 03/11/24 08:11 Const Other: Alert oriented x3, no acute distress noted, ambulatory with normal gait HENMT Mouth: Normal oral and palatal mucosa present and moist mucous membranes Eyes General: appearance normal, both eyes and all related structures Neck Neck: Yes full ROM, Yes no lymphadenopathy and Yes supple Thyroid: Thyroid normal Resp Auscultation: clear to auscultation bilaterally Cardio Other: S1-S2 present regular rhythm GI Other: Normal bowel sounds, soft, nontender, no mass palpated Other: Deferred, sees her OBGYN in [place], currently up-to-date with her Pap and pelvic exam Neuro General: gait normal, no focal motor deficits and CN's II-XI intact bilaterally Extrem General: Yes full ROM, Yes no joint enlargement, Yes no pedal edema and Yes normal gait Psych Appearance: grossly normal and well kempt Mental Status: mental status grossly normal Speech and movement: Normal speech and movement present Affect: normal affect Attitude: cooperative Thought process: Normal thought process present Thought content: Normal thought content present Results Reviewed Results Reviewed: Name: Mc Lo Age/Sex: 68/F : 1955 Unit#: [id number] Attend Dr: Shanita Frankel MD Re11/15/23 Status: DEP REF Location: [facility]: SPEC : [id number] CHERYL: 11/15/23 STATUS: COMP REQ : [id number] RECD: 11/15/[address]: Shanita Frankel MD COMP: 11/15/23 ENTERED: 11/15/23 [facility] DR: ORDERED: Met Prof Fast, AST, ALT, Lipid Panel, Vitamin D 25-OH Test Result Flag Reference Sodium 139 135-145 mmol/L Potassium 3.7 3.3-5.1 mmol/L CL 105 96-108 mmol/L CO2 27 22-29 mmol/L Gap 11 L 12-20 BUN 13 9-16 mg/dL Creat 0.87 0.5-1.4 mg/dL EGFR > 60 NOTE: For -[place] individuals, multiply the result by 1.210. Chronic Kidney Disease: Estimated GFR < 60 mL/min/1.73m2 Severe Kidney Disease: Estimated GFR < 15 mL/min/1.73m2 FBS 96 60-99 mg/dL CA 9.9 8.4-10.2 mg/dL AST (GOT) 24 5-31 U/L ALT (GPT) 23 0-31 U/L Triglyceride 188 H <150 mg/dL Desirable Triglyceride: less than 150 mg/dL Borderline High Triglyceride 150-199 mg/dL High Triglyceride: 200-499 mg/dL Very High Triglyceride: greater than or equal to 5OO mg/dL Cholesterol 142 <200 mg/dL Desirable Cholesterol: less than 200 mg/dL Borderline High Cholesterol: 200-239 mg/dL High Cholesterol: greater than 239 mg/dL LDL Calculated 67 <100 mg/dL Desirable LDL: less than 100 mg/dL Near Optimal/Above Optimal LDL: 110-129 mg/dL Borderline High LDL: 130-159 mg/dL High LDL: 160-189 mg/dL Very High LDL: greater than or equal to 190 mg/dL HDL 38 L >40 mg/dL Desirable HDL: greater than 40 mg/dL Note: This HDL assay may give artificially low results in patients with liver disease. Vit D 25-OH Tot 51.6 >30 ng/mL Health Based Reference Values* Assessment and Plan Assessment & Plan (1) Labile essential hypertension: Code(s): I10 - Essential (primary) hypertension Plan: Will continue on lisinopril 10 mg once a day, and referred to nephrology clinic for possible 24 blood pressure monitoring. Continue with regular exercise and adherence to healthy eating habits. (2) Mixed dyslipidemia: Code(s): E78.2 - Mixed hyperlipidemia Plan: Fasting lipid panel ordered today, currently taking atorvastatin and fenofibric acid (3) Impaired fasting glucose: Code(s): R73.01 - Impaired fasting glucose Plan: Repeat fasting glucose and hemoglobin A1c ordered today (4) Generalized anxiety disorder: Code(s): F41.1 - Generalized anxiety disorder Plan: Will continue on buspirone 5 mg in a.m. and increase to 20 mg at night , and let me know if after 2 weeks no improvement in her sleep schedule noted with the increase in dose, , and will try adding trazodone 25 mg 1 tablet at bedtime. Orders: Orders Hemoglobin A1c 03/11/24 E78.2 - Mixed hyperlipidemia, I10 - Essential (primary) hypertension, M85.89 - Other specified disorders of bone density and structure, multiple sites, R73.01 - Impaired fasting glucose, Z78.0 - Asymptomatic menopausal state Alanine Aminotransferase 03/11/24 E78.2 - Mixed hyperlipidemia, I10 - Essential (primary) hypertension, M85.89 - Other specified disorders of bone density and structure, multiple sites, R73.01 - Impaired fasting glucose, Z78.0 - Asymptomatic menopausal state Aspartate Amino Transferase 03/11/24 E78.2 - Mixed hyperlipidemia, I10 - Essential (primary) hypertension, M85.89 - Other specified disorders of bone density and structure, multiple sites, R73.01 - Impaired fasting glucose, Z78.0 - Asymptomatic menopausal state Vitamin D 25-OH Total 03/11/24 E78.2 - Mixed hyperlipidemia, I10 - Essential (primary) hypertension, M85.89 - Other specified disorders of bone density and structure, multiple sites, R73.01 - Impaired fasting glucose, Z78.0 - Asymptomatic menopausal state Lipid Panel 03/11/24 E78.2 - Mixed hyperlipidemia, I10 - Essential (primary) hypertension, M85.89 - Other specified disorders of bone density and structure, multiple sites, R73.01 - Impaired fasting glucose, Z78.0 - Asymptomatic menopausal state Basic Metabolic Panel Fasting 03/11/24 E78.2 - Mixed hyperlipidemia, I10 - Essential (primary) hypertension, M85.89 - Other specified disorders of bone density and structure, multiple sites, R73.01 - Impaired fasting glucose, Z78.0 - Asymptomatic menopausal state Referrals Nephrology Referral I10 - Essential (primary) hypertension Coding Level of Care Code Est Pt Level 4 (97928) Diagnoses Labile essential hypertension I10 Mixed dyslipidemia E78.2 Impaired fasting glucose R73.01 Generalized anxiety disorder F41.1
[2024-03-11 08:11] VITALS: BP 144/64; PULSE 81; O2SAT 97; BMI 26.8
== END 2024-03-11 09:41 | disposition home or self-care (01) ==
PROVIDERS: PCP Internal Medicine; Visit Provider Internal Medicine
DX: I10 Essential (primary) hypertension (principal); E78.2 Mixed hyperlipidemia; R73.01 Impaired fasting glucose; F41.1 Generalized anxiety disorder
CPT/HCPCS: 99214

== ENCOUNTER 2024-03-11 08:59 | Outpatient (REF) | payer MEDICARE, SELFPAY ==
[2024-03-11 10:37] LABS: Estimated Average Glucose 114 mg/dL; Hemoglobin A1C 133.6806 umol/L; Hemoglobin A1c % 5.6 % (<6.0)
[2024-03-11 11:08] LABS: Alanine Aminotransferase 24 U/L (0-31); Anion Gap 17 (12-20); Aspartate Amino Transferase 25 U/L (5-31); Blood Urea Nitrogen 13 mg/dL (9-16); Calcium 10.9 mg/dL (8.4-10.2); Carbon Dioxide 26 mmol/L (22-29); Chloride 104 mmol/L (96-108); Cholesterol 185 mg/dL (<200); Estimated Glomerular Filt Rate > 60; Glucose Fasting 100 mg/dL (60-99); HDL Cholesterol 45 mg/dL (>40); LDL Cholesterol Calculated 102 mg/dL (<100); Sodium 142 mmol/L (135-145); Triglycerides 194 mg/dL (<150)
== END 2024-03-11 09:00 | disposition home or self-care (01) ==
LOC: HO.HMGCLDS 08:59
PROVIDERS: PCP Internal Medicine; Visit Provider Internal Medicine
DX: I10 Essential (primary) hypertension (principal); R73.01 Impaired fasting glucose; M85.89 Other specified disorders of bone density and structure, multiple sites; Z78.0 Asymptomatic menopausal state; E78.2 Mixed hyperlipidemia
CPT/HCPCS: 36415; 80048; 80061; 82306; 83036; 84450; 84460

== ENCOUNTER 2024-03-18 11:26 | Outpatient (AMB) | payer MEDICARE, SELFPAY ==
[2024-03-18 11:28] VITALS: BP 160/77; PULSE 101; O2SAT 98; BMI 27.0
--- NOTE | 2024-03-18 11:28 | HO.NEPHOV_ITS ---
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 Accompanied by: Self / Same As Patient Allergies amoxicillin [From Augmentin] Adverse Reaction (Mild, Verified 03/18/24 11:33) Diarrhea clavulanic acid [From Augmentin] Adverse Reaction (Mild, Verified 03/18/24 11:33) Diarrhea Medication List - Last Reconciled 03/18/24 by Lalito Corral MD aspirin (Adult Low Dose Aspirin) 81 mg PO DAILY atorvastatin 20 mg PO 2XW buspirone 1 tab in am, 3 tabs in pm orally; 3 months NS cholecalciferol (vitamin D3) 50 mcg PO DAILY fenofibric acid (choline) 135 mg PO BEDTIME NS lisinopril 10 mg PO DAILY multivitamin 1 tab PO DAILY [id number] 200 mcg-15 mcg- 5 mg-1 mg (PreserVision AREDS 2 Plus Multivit) caps PO BID HPI Comments Details: . Mc Lainez is a pleasant 69-year-old woman with a history of hypertension were almost 9 years. She has been on lisinopril since 2014. Recently blood pressure was elevated and she has been referred for evaluation of hypertension. Overall she is doing well. No lightheadedness. No headache nausea vomiting. No edema. No urinary symptoms. [facility] Medical History (Updated 03/11/24 @ 08:51 by Shanita Frankel MD) Labile essential hypertension Generalized anxiety disorder Unable to lose weight Overweight (BMI 25.0-29.9) Impaired fasting glucose Osteopenia of multiple sites Menopause Essential hypertension Mixed dyslipidemia Surgical History History of section Family History Father CVD (cardiovascular disease) Diabetes mellitus Hypertriglyceridemia Mother CVD (cardiovascular disease) Diabetes mellitus Breast cancer, Onset Age: 43 Colon cancer Sister Dermatomyositis Breast cancer Hypertension Ovarian cancer Social History Housing: Condominium Alcohol intake: current Patient Tobacco Use Status: Former Tobacco user e-Cigarette/Vaping Use: Never Used Current occupational status: retired Cognitive needs: No Hearing needs: No Vision needs: No Physical Exam Vital Signs: Last Vital Signs Pulse 101 H 03/18/24 11:28 BP 160/77 H 03/18/24 11:28 Pulse Ox 98 03/18/24 11:28 Oxygen Delivery Method Room Air 03/18/24 11:28 BMI result Body Mass Index 27.0 Const General: comfortable Nutritional Appearance: well nourished Orientation/consciousness: patient oriented x3 HEENT Head: No normal to inspection Mouth: moist mucous membranes Neck Neck: Yes supple and Yes no JVD Resp Auscultation: clear to auscultation bilaterally, no rales and rub present Cardio Jugular venous distension: no JVD Palpation: no palpable S3 and no palpable S4 Heart sounds: no rubs GI Palpation (GI): Soft to palpation and nontender Percussion: No Fluid wave present General: Yes no CVA tenderness Back/Spine/Pelvis Back: no CVA tenderness Skin General skin exam: no rashes or lesions noted Neuro General: patient oriented x3 Extrem General: Yes no pedal edema and No clubbing Results Reviewed Nephrology Results: Sodium 142 mmol/L (135-145) 03/11/24 Potassium 5.0 mmol/L (3.3-5.1) 03/11/24 Chloride 104 mmol/L (96-108) 03/11/24 Carbon Dioxide 26 mmol/L (22-29) 03/11/24 BUN 13 mg/dL (9-16) 03/11/24 Creatinine 0.80 mg/dL (0.5-1.4) 03/11/24 Calcium 10.9 mg/dL (8.4-10.2) H 03/11/24 Assessment & Plan Assessment & Plan (1) Labile essential hypertension: Code(s): I10 - Essential (primary) hypertension Category: Medical Plan . 69-year-old woman with a history of hypertension. Home blood pressure readings are excellent. There might be a component of white coat effect. I will proceed with a 24 hour ABP. Based on this we can adjust her medications if needed. The meantime encouraged her to stand low-sodium diet. Continue with current dose of lisinopril for now. Mild hypercalcemia due to calcium supplementation and high dose of vitamin-D. I have asked her to stop the vitamin-D for a week and restarted at 2000 units every other day. Orders: Orders AMB 24 Hour Blood Pressure Monitor PLACEMENT Today I10 - Essential (primary) hypertension Coding Level of Care Code New Pt Level 4 (40003) Diagnoses Labile essential hypertension I10
== END 2024-03-18 11:47 | disposition home or self-care (01) ==
PROVIDERS: PCP Internal Medicine; Visit Provider Internal Medicine Hypertension Specialist
DX: I10 Essential (primary) hypertension (principal)
CPT/HCPCS: 99204

== ENCOUNTER → 2024-03-18 11:26 | Outpatient (BNVA) | payer MEDICARE, SELFPAY | PROVIDERS: PCP Internal Medicine; Visit Provider Internal Medicine Hypertension Specialist | DX: I10 Essential (primary) hypertension (principal) | CPT/HCPCS: 99202 ==

== ENCOUNTER → 2024-04-08 09:52 | Outpatient (BNVA) | payer MEDICARE, SELFPAY | PROVIDERS: PCP Internal Medicine; Visit Provider Internal Medicine Hypertension Specialist ==

== ENCOUNTER 2024-04-09 09:55 | Outpatient (AMB) | payer MEDICARE, SELFPAY ==
[2024-04-09 09:58] VITALS: BP 150/72; PULSE 88; O2SAT 98; BMI 26.8
--- NOTE | 2024-04-09 09:58 | HO.NEPHOV_ITS ---
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 Mc Lainez is a pleasant 69-year-old woman with a history of hypertension were almost 9 years. She has been on lisinopril since 2015. Recently blood pressure was elevated and she has been referred for evaluation of hypertension. Overall she is doing well. No lightheadedness. No headache nausea vomiting. No edema. No urinary symptoms. 04/09/2024. She underwent 24 hour ABPM [facility] Medical History (Updated 04/09/24 @ 10:17 by Lalito Corral MD) Labile essential hypertension Generalized anxiety disorder Unable to lose weight Overweight (BMI 25.0-29.9) Impaired fasting glucose Osteopenia of multiple sites Menopause Essential hypertension Mixed dyslipidemia Surgical History History of section Family History Father CVD (cardiovascular disease) Diabetes mellitus Hypertriglyceridemia Mother CVD (cardiovascular disease) Diabetes mellitus Breast cancer, Onset Age: 43 Colon cancer Sister Dermatomyositis Breast cancer Hypertension Ovarian cancer Social History Housing: Condominium Alcohol intake: current Patient Tobacco Use Status: Former Tobacco user e-Cigarette/Vaping Use: Never Used Current occupational status: retired Cognitive needs: No Hearing needs: No Vision needs: No Physical Exam Vital Signs: Last Vital Signs Pulse 88 04/09/24 09:58 BP 150/72 H 04/09/24 09:58 Pulse Ox 98 04/09/24 09:58 Oxygen Delivery Method Room Air 04/09/24 09:58 BMI result Body Mass Index 26.8 Const General: comfortable Nutritional Appearance: well nourished Orientation/consciousness: patient oriented x3 HEENT Head: No normal to inspection Mouth: moist mucous membranes Neck Neck: Yes supple and Yes no JVD Resp Auscultation: clear to auscultation bilaterally and no rales Cardio Jugular venous distension: no JVD Palpation: no palpable S3 and no palpable S4 Heart sounds: no rubs GI Palpation (GI): Soft to palpation and nontender Percussion: No Fluid wave present General: Yes no CVA tenderness Back/Spine/Pelvis Back: no CVA tenderness Skin General skin exam: no rashes or lesions noted Neuro General: patient oriented x3 Extrem General: Yes no pedal edema and No clubbing Office Procedures 24 B/P Monitor Interpretation CPT: 32218 24 Hour Blood Pressure Monitor Reading Procedure code (CPT) selection complete Results Reviewed Nephrology Results: Sodium 142 mmol/L (135-145) 03/11/24 Potassium 5.0 mmol/L (3.3-5.1) 03/11/24 Chloride 104 mmol/L (96-108) 03/11/24 Carbon Dioxide 26 mmol/L (22-29) 03/11/24 BUN 13 mg/dL (9-16) 03/11/24 Creatinine 0.80 mg/dL (0.5-1.4) 03/11/24 Calcium 10.9 mg/dL (8.4-10.2) H 03/11/24 Assessment & Plan Assessment & Plan (1) Labile essential hypertension: Code(s): I10 - Essential (primary) hypertension Category: Medical Plan . 69-year-old woman with a history of hypertension. Home blood pressure readings are excellent. 24 hour ambulatory blood pressure monitoring revealed white coat effect. The average 24 hour blood pressure reading was normal with appropriate nocturnal dipping. Based on the 20/4 hour blood pressure monitoring I will not change his medications. Encouraged her to keep monitoring of blood pressure at home at least once a week and based on home blood pressure readings we can adjust medications if needed. encouraged her to stand low-sodium diet. Mild hypercalcemia due to calcium supplementation and high dose of vitamin-D. Vitamin-D supplementation was reduced 20 days ago. I will recheck calcium and vitamin-D levels today. Orders: Orders Basic Metabolic Panel Today E83.52 - Hypercalcemia, I10 - Essential (primary) hypertension Vitamin D 25-OH (D2 and D3) Today E83.52 - Hypercalcemia, I10 - Essential (primary) hypertension Parathyroid Hormone Intact Today E83.52 - Hypercalcemia, I10 - Essential (primary) hypertension Complete Blood Count no Diff Today E83.52 - Hypercalcemia, I10 - Essential (primary) hypertension UA and rflx microscopic Today E83.52 - Hypercalcemia, I10 - Essential (primary) hypertension Coding Level of Care Code Est Pt Level 4 (45020) Diagnoses Labile essential hypertension I10 CPT Codes - CPT: 57766 24 Hour Blood Pressure Monitor Reading ([id number])
== END 2024-04-09 10:22 | disposition home or self-care (01) ==
PROVIDERS: PCP Internal Medicine; Visit Provider Internal Medicine Hypertension Specialist
DX: I10 Essential (primary) hypertension (principal)
CPT/HCPCS: 93790; 99214

== ENCOUNTER → 2024-04-09 09:55 | Outpatient (BNVA) | payer MEDICARE, SELFPAY | PROVIDERS: PCP Internal Medicine; Visit Provider Internal Medicine Hypertension Specialist | DX: I10 Essential (primary) hypertension (principal) | CPT/HCPCS: 99212 ==

== ENCOUNTER 2024-04-09 10:41 | Outpatient (REF) | payer MEDICARE, SELFPAY ==
[2024-04-09 13:43] LABS: Appearance Urine Clear; Color Urine Yellow; Glucose Urine UA Negative (Negative); Leukocyte Esterase Urine Trace (Negative); Nitrite Urine Negative (Negative); Specific Gravity - Urine <= 1.005 (1.005-1.025); UMIC TRIGGER UA YES; Urine Blood Negative (Negative); Urine Ketones Negative (Negative); Urine Protein Negative (Neg-Trace)
[2024-04-09 13:47] LABS: Hematocrit 40.6 % (37.0-47.0); Mean Corpuscular HGB Conc 34.5 g/dl (31.0-35.0); Mean Corpuscular Hemoglobin 31.4 pg (27.0-33.0); Mean Platelet Volume 10.8 fL (9.4-12.3); Platelet Count 304 X10*3/uL (160-400); Red Blood Count 4.46 X10*6/uL (4.20-5.50); Red Cell Distribution Width 12.8 % (11.0-16.0); White Blood Count 7.8 X10*3/uL (4.8-10.8)
[2024-04-09 13:49] LABS: Bacteria Urine None Seen (None Seen); Hyaline Casts Urine 0-2 /LPF (0-2); RBC Urine 0-2 /HPF (0-2); Squamous Epithelial Cell Urine 0-2 /HPF (0-2); WBC Urine 0-5 /HPF (0-5)
[2024-04-09 13:59] LABS: Anion Gap 14 (12-20); Blood Urea Nitrogen 13 mg/dL (9-16); Calcium 10.2 mg/dL (8.4-10.2); Carbon Dioxide 25 mmol/L (22-29); Chloride 105 mmol/L (96-108); Estimated Glomerular Filt Rate > 60; Glucose Random 103 mg/dL (60-115); Potassium 3.9 mmol/L (3.3-5.1); Sodium 140 mmol/L (135-145)
[2024-04-09 14:32] LABS: Parathyroid Hormone Intact 24.1 pg/mL (8.7-77.1)
[2024-04-13 14:58] LABS: Vitamin D 25-OH, D2 <4 ng/mL; Vitamin D 25-OH, D3 31 ng/mL; Vitamin D 25-OH, Total 31 ng/mL (30-100)
== END 2024-04-09 10:42 | disposition home or self-care (01) ==
LOC: HO.10HDL 10:41
PROVIDERS: Visit Provider Internal Medicine Hypertension Specialist
DX: I10 Essential (primary) hypertension (principal); E83.52 Hypercalcemia
CPT/HCPCS: 36415; 80048; 81001; 82306; 83970; 85027